=== PATIENT | male | born 1965 | race Caucasian/White ===

== ENCOUNTER 2017-07-19 17:13 | Emergency (ER) | payer OTHER ==
[~2017-07-19] VITALS: Ht 177.8 cm; Wt 88.9 kg
[2017-07-19] MEDS ORDERED: LYRICA50 M1 PO (18:33)
[2017-07-19] MEDS ORDERED: ELIQUIS2.5 M1 PO (18:33)
[2017-07-19] MEDS ORDERED: CHILDREN'S CLARI5 MG PO (18:34)
[2017-07-19] MEDS ORDERED: ZETIA10 MG PO (18:34)
[2017-07-19] MEDS ORDERED: OMEPRAZOLE10 MG PO (18:34)
[2017-07-19] MEDS ORDERED: BAYER ASPIRIN C81 MG PO (18:35)
[2017-07-19] MEDS ORDERED: LASIX80 MG PO (18:35)
[2017-07-19] MEDS ORDERED: LISINOPRIL2.5 MG PO (18:35)
[2017-07-19] MEDS ORDERED: INVOKANA100 M1 PO (18:35)
[2017-07-19] MEDS ORDERED: TOPROL XL25 MG PO (18:36)
[2017-07-19] MEDS ORDERED: ISORDIL10 M1 PO (18:36)
[2017-07-19] MEDS ORDERED: METFORMIN HYDR500 MG PO (18:37)
[2017-07-19] MEDS ORDERED: SOTALOL80 MG PO (18:37)
[2017-07-19] MEDS ORDERED: GABAPENTIN400 MG PO (18:37)
[2017-07-19] MEDS ORDERED: CYMBALTA20 M1 PO (18:38)
[2017-07-19] MEDS ORDERED: LIPITOR10 MG PO (18:38)
[2017-07-19 18:54] LABS: BASO # 0.1 10*3/uL (0.0-0.1); BASO % 0.8 % (0.0-1.0); EOS # 0.4 10*3/uL (0.0-0.4); EOS % 3.9 % (1.0-4.0); HEMATOCRIT 25.8 % (42.0-52.0); HEMOGLOBIN 7.6 g/dl (14.0-18.0); LYMPH # 2.2 10*3/uL (1.3-4.4); LYMPH % 21.4 % (27.0-41.0); MEAN CELL VOLUME 77.2 fl (80.0-94.0); MEAN CORPUSCULAR HGB 22.8 pg (27.0-31.0); MEAN CORPUSCULAR HGB CONC 29.5 g/dl (33.0-37.0); MEAN PLATELET VOLUME 9.6 fl (9.6-12.3); MONO # 1.2 10*3/uL (0.1-1.0); MONO % 11.7 % (3.0-9.0); NEUT # 6.4 10*3/uL (2.3-7.9); NEUT % 61.9 % (47.0-73.0); NUCLEATED RED BLOOD CELL 0.1 10*3/uL (0.0-0.0); NUCLEATED RED BLOOD CELL 0.6 % (0.0-0.0); PLATELET COUNT AUTOMATED 303 10*3/uL (130-400); RED BLOOD COUNT 3.34 10*6/uL (4.50-5.90); RED CELL DISTRI WIDTH 18.5 % (0-14.5); WHITE BLOOD COUNT 10.4 10*3/uL (4.8-10.8)
[2017-07-19 19:08] LABS: ALBUMIN 3.2 gm/dl (3.1-4.5); ALKALINE PHOSPHATASE 74 U/L (45-117); BUN 10 mg/dl (7-24); CHLORIDE 95 mmol/L (98-107); CREATININE 0.87 mg/dL (0.70-1.30); POTASSIUM 4.5 mmol/L (3.5-5.1); SGOT/AST 7 IU/L (3-35); SGPT/ALT 14 U/L (12-78); SODIUM 130 mmol/L (136-145); TOTAL PROTEIN 6.6 gm/dL (6.4-8.2)
== END 2017-07-19 23:23 | disposition short-term general hospital (02) ==
LOC: ED 17:13
PROVIDERS: Nurse Practitioner
DX: T20.06XA Burn of unspecified degree of forehead and cheek, initial encounter (principal); T26.02XA Burn of left eyelid and periocular area, initial encounter; J44.1 Chronic obstructive pulmonary disease with (acute) exacerbation; F17.200 Nicotine dependence, unspecified, uncomplicated; Z71.6 Tobacco abuse counseling; Z79.899 Other long term (current) drug therapy; Z79.82 Long term (current) use of aspirin; Z98.890 Other specified postprocedural states; Z99.81 Dependence on supplemental oxygen; Z95.5 Presence of coronary angioplasty implant and graft; X08.8XXA Exposure to other specified smoke, fire and flames, initial encounter; Y93.89 Activity, other specified; Y92.89 Other specified places as the place of occurrence of the external cause; Y99.9 Unspecified external cause status

== ENCOUNTER 2018-08-09 00:55 | Emergency (ER) | payer OTHER ==
[~2018-08-09] VITALS: Ht 172.7 cm; Wt 77.1 kg
[~2018-08-09 00:55] MED LIST: BAYER ASPIRIN C81 MG PO; CHILDREN'S CLARI5 MG PO; CYMBALTA20 M1 PO; ELIQUIS2.5 M1 PO; GABAPENTIN400 MG PO; INVOKANA100 M1 PO; ISORDIL10 M1 PO; LASIX80 MG PO; LIPITOR10 MG PO; LISINOPRIL2.5 MG PO; LYRICA50 M1 PO; METFORMIN HYDR500 MG PO; OMEPRAZOLE10 MG PO; SOTALOL80 MG PO; TOPROL XL25 MG PO; ZETIA10 MG PO
== END 2018-08-09 02:56 ==
LOC: ED 00:55
DX: S02.2XXA Fracture of nasal bones, initial encounter for closed fracture (principal); J44.9 Chronic obstructive pulmonary disease, unspecified; F17.200 Nicotine dependence, unspecified, uncomplicated; Z79.899 Other long term (current) drug therapy; Z79.82 Long term (current) use of aspirin; Y08.89XA Assault by other specified means, initial encounter; Y93.89 Activity, other specified; Y92.89 Other specified places as the place of occurrence of the external cause; Y99.8 Other external cause status